=== PATIENT | female | born 1950 | race African-American/Black ===

== ENCOUNTER → 2016-02-26 | Outpatient (CLI) | payer MEDICAID ==
--- NOTE | 2016-02-26 13:08 | MA ---
Diagnostic Digital Mammogram Right Breast With iCAD Analysis Clinical Indications: Follow up probably benign asymmetry noted on the sonographic evaluation October 01, 2015 in the upper posterior right breast. Sonographic assessment October 05, 2015 demonstrated no abnormality cystic or solid in this region. Technique: Digital breast tomosynthesis of the right breast was performed in the MLO projection with reconstruction at 1.0 mm slice thickness and composite MLO view reconstructed. This examination is pr ocessed by the iCAD computer aided detection system. Comparison: October 01, 2015; September 26, 2014; August 12, 2013. Breast density: Type B; Scattered fibroglandular densities. Findings: CAD was reviewed. The subtle asymmetry in the upper posterior right breast is less conspicu ous compared to the most recent tomographic evaluation. No suspicious microcalcifications are seen. Impression: Benign mammographic follow up, BI-RADS 2. Recommendation: Resume routine mammographic screening in September 2016 as long as physical examination is negative. A verbal report was given to the patient. [facility] will send a result letter to the patient. Negative mammography should not preclude additional workup of a clinically suspicious finding. The patient's information is entered into a reminder system with a target due date for her next mammo gram.
== END ==
LOC: FIMAGING 12:17
PROVIDERS: ATTEND Surgery
DX: R92.8 Other abnormal and inconclusive findings on diagnostic imaging of breast (principal)
CPT/HCPCS: G0206; G0279

== ENCOUNTER → 2016-08-18 | Outpatient (CLI) | payer MEDICAID | LOC: FIMAGING 13:32 | PROVIDERS: ATTEND Physical Medicine & Rehabilitation | DX: M51.36 Other intervertebral disc degeneration, lumbar region (principal) ==

== ENCOUNTER → 2016-10-03 | Outpatient (CLI) | payer MEDICAID | LOC: FIMAGING 11:07 | PROVIDERS: ATTEND Obstetrics & Gynecology Gynecology | DX: R93.8 Abnormal findings on diagnostic imaging of other specified body structures (principal) ==

== ENCOUNTER 2016-10-09 14:43 | Emergency (ER) | payer MEDICAID ==
[2016-10-09 14:56] VITALS: RESP 20
--- NOTE | 2016-10-09 16:20 | EDPHY ---
H & P Stated Complaint: RECTAL PAIN. NO TRAUMA. SENT FROM PCP Time Seen by Provider: 10/09/16 16:05 HPI/ROS: CHIEF COMPLAINT: Rectal pain HISTORY OF PRESENT ILLNESS: This patient is a 66 year old female complaining of rectal pain onset this afternoon at her home. Early this afternoon she felt an urge to move her bowels but could not have a bowel movement despite bearing down. She felt her rectal muscles were swollen and tight and had to lean over her sink for 20 minutes due to pain. She repeated this process and felt nauseous but did not vomit. She suspected dehydration and drank a large glass of orange juice and water and tried forcing again unsuccessfully. She had a doctor's appointment scheduled at 2pm, and her primary care provider recommended she present to the Emergency Department for further evaluation. She continues to feel the urge to have a bowel movement and states it hurts every time she strains to move her bowels. She is uncomfortable sitting. Her last bowel movement was yesterday which is unusual for her. She has not tried any OTC medications. Thursday, she had dental work done, and has been taking narcotic pain medication every 8 hours as prescribed. She denies history of hemorrhoids. She has not seen blood in her stool. REVIEW OF SYSTEMS: A ten point review of systems was performed and is negative with the exception of the items mentioned in the HPI. Past medical history: Denies Past surgical history: [place] teeth Family history: Unknown. Social history: PCP Dr. Rivera. Single. Lives in [place]. General Appearance: Alert. Vital signs reviewed. Blood pressure 132/79. Eyes: Pupils equal and round, no conjunctival injection, no discharge. Anicteric. ENT, Mouth: Mucous membranes are moist, no oropharyngeal erythema or edema. Neck: No lymphadenopathy, supple. Respiratory: Lungs are clear to auscultation; no wheezes, rales, or rhonchi. Cardiovascular: Regular rate and rhythm; no murmur, rub, or gallop. Gastrointestinal: Lower abdominal tenderness. Abdomen is soft, no masses or organomegaly, bowel sounds normal. Rectal: No hemorrhoids. Large amount of firm stool in vault. Normal sphincter muscle strength. Skin: Warm and dry, no rashes on exposed skin, normal color. Back: Nontender to palpation over the thoracolumbar spine. No CVAT. Extremities: No lower extremity edema, no calf tenderness or swelling. Neurological: Alert and oriented. Moving all four extremities easily and equally. Psychiatric: Normal affect. - Personal History Current Tetanus/Diphtheria Vaccine: Yes Tetanus Vaccine Date: 2004 - Medical/Surgical History Hx Asthma: No Hx Chronic Respiratory Disease: No Hx Diabetes: No Hx Cardiac Disease: No Hx Renal Disease: No Hx Cirrhosis: No Hx Alcoholism: No Hx HIV/AIDS: No Hx Splenectomy or Spleen Trauma: No Other PMH: wisdom teeth - Social History Smoking Status: Never smoked Constitutional: Initial Vital Signs Temperature (C) 36.9 C 10/09/16 14:53 Heart Rate 82 10/09/16 14:53 Respiratory Rate 20 10/09/16 14:53 Blood Pressure 132/79 H 10/09/16 14:53 O2 Sat (%) 98 10/09/16 14:53 O2 Delivery Mode Room Air Allergies/Adverse Reactions: No Known Allergies Allergy (Verified 01/18/14 21:17) Home Medications: Medication Instructions Recorded Ascorbic Acid [Vitamin C 250 mg 250 mg PO DAILY 01/18/16 (*)] Azelastine [Astelin Nasal [place] 2 sprays EACHNARE DAILY PRN 01/18/16 (RX)] Cholecalciferol Vit D3 [Vitamin D3 1,000 units PO DAILY 01/18/16 (*)] Fluticasone Nasal [Flonase Nasal 2 sprays NASAL DAILY PRN 01/18/16 [place] (RX)] Ibuprofen [Motrin (*)] 600 mg PO BID PRN 01/18/16 [place]-3 Fatty Acids [Fish Oil 1000 1,000 mg PO DAILY 01/18/16 mg (*)] Vitamin B Complex [B Complex] 1 each PO DAILY 01/18/16 AMOXICILLIN 1,000 mg 10/09/16 [place] 5/325 (*) 10/09/16 Medical Decision Making ED Course/Re-evaluation: Discussed enema versus manual disimpaction with patient, she prefers to proceed with enema at this point. Patient tolerated enema, but no bowel movement. She would like to attempt magnesium citrate administration. 18:15 Reassessed. Attempted manual disimpaction. Unable to remove stool. The patient would like to proceed with IV rehydration and magnesium citrate orally. She was offered a 2nd enema but refused. 21:42 Reassessed patient. She was able to have a bowel movement, and feels relieved. She will be discharged home in good condition. Follow up and return precautions discussed. The patient is comfortable with this plan. I do not suspect bowel obstruction and she is not currently feeling bloated or nauseous. She has not had fever and I do not suspect intra-abdominal infection. There are no hemorrhoids on exam. No rectal prolapse on exam. No FH of colon cancer. - Data Points Medications Given: Discontinued Medications Sodium Chloride (Ns) 1,000 mls @ 0 mls/hr IV ONCE ONE PRN Reason: Wide Open Stop: 10/09/16 19:23 Last Admin: 10/09/16 19:24 Dose: 1,000 mls Magnesium Citrate (Magnesium Citrate) 300 ml PO ONCE ONE Stop: 10/09/16 19:23 Last Admin: 10/09/16 19:25 Dose: 10 oz Departure - Departure Disposition: Home, Routine, Self-Care Clinical Impression: Constipation Qualifiers: Constipation type: unspecified constipation type Qualified Code(s): K59.00 - Constipation, unspecified Condition: Good Instructions: Constipation (ED) Additional Instructions: 1. Follow up with your primary care physician for continued management of your symptoms. 2. Return to the emergency department for worsening abdominal pain, recurring constipation, fever, vomiting, or other worsening of condition. Referrals: Ajit Rivera MD [Primary Care Provider] - As per Instructions Report Scribed for: Matilda Barrios Report Scribed by: Jeannie Hernandez Date of Report: 10/09/16 Time of Report: 17:57 Physician Review and Approval Statement: 10/09/16 16:20 Portions of this note were transcribed by the medical historian. I, Dr. Matilda Barrios, personally performed the history, physical exam, and medical decision- making; and confirmed the accuracy of the information in the transcribed note.
[2016-10-09] MEDS ORDERED: LIDOCAINE 2% JELLY 20 ML (UROJECT) ONE (18:18)
[2016-10-09] MEDS ORDERED: NS 1,000 ML IV ONE (19:22)
[2016-10-09] MEDS ORDERED: MAGNESIUM CITRATE 300 ML BOTTLE PO ONE (19:22)
[2016-10-09 22:14] VITALS: BP 124/75; PULSE 81; TEMP 97.9; O2SAT 96
== END 2016-10-09 22:14 | disposition home or self-care (01) ==
LOC: EEVIPCON 14:43
DX: K59.00 Constipation, unspecified (principal)

== ENCOUNTER → 2017-02-27 | Outpatient (CLI) | payer MEDICAID | LOC: FIMAGING 14:09 | PROVIDERS: ATTEND Obstetrics & Gynecology Gynecology | DX: R92.8 Other abnormal and inconclusive findings on diagnostic imaging of breast (principal) ==